=== PATIENT | female | born 1995 | race Caucasian/White ===

== ENCOUNTER 2022-05-19 22:23 | Emergency (ER) | payer BC, OTHER ==
[2022-05-19 22:32] VITALS: BP 103/74; PULSE 80; RESP 16; TEMP 98.1; BMI 31.2
[2022-05-19] MEDS ORDERED: KETOROLAC TROMETHAMINE 30 MG/1 ML VIAL IVPUSH ONE (23:12)
[2022-05-19] MEDS ORDERED: SODIUM CHLORIDE 1,000 ML IV STA (23:12)
[2022-05-19] MEDS ORDERED: KETOROLAC TROMETHAMINE 30 MG/1 ML VIAL ONE (23:17)
== END 2022-05-20 00:56 | disposition home or self-care (01) ==
LOC: FER 22:23
PROC: 3E0333Z Introduction of Anti-inflammatory into Peripheral Vein, Percutaneous Approach (ICD-10-PCS; principal; 2022-05-19)
PROC: 3E0337Z Introduction of Electrolytic and Water Balance Substance into Peripheral Vein, Percutaneous Approach (ICD-10-PCS; 2022-05-19)
DX: S09.90XA Unspecified injury of head, initial encounter (principal); R51.9 Headache, unspecified; W22.8XXA Striking against or struck by other objects, initial encounter
CPT/HCPCS: 70450-TC; 81025; 99284-25